=== PATIENT | female | born 1955 | race Caucasian/White ===

== ENCOUNTER → 2017-03-31 | Outpatient (CLI) | payer OTHER | LOC: RAD 03-10 23:20 | DX: N63 Unspecified lump in breast (principal) ==

== ENCOUNTER → 2017-04-08 | Outpatient (CLI) | payer OTHER ==
--- NOTE | ~2017-04-08 | S ---
[facility] [place] [address] SURGICAL PATH RPT PROCEDURE Name: ANGEL KRAMER Room #: REG [facility] MRay.#: [id number] Admission: 04/08/17 Date of : 51 Discharge: Report #: [id number] Path Case #: [id number] PATHOLOGY REPORT COLLECTION DATE: 04/08/2017 RECEIVED DATE: 04/08/2017 SUBMITTING PHYS: Dr. Jhonatan Beckett OTHER PHYS: Dr. Luis Alberto Obrien ADDENDUM REPORT (Order Date: 04/11/2017 13:14) ADDENDUM DIAGNOSIS: A. Breast, left breast, 12:00 SA, needle core biopsy: - INVASIVE MODERATELY DIFFERENTIATED LOBULAR CARCINOMA, EMMA GRADE II MEASURING 1.6 CM IN GREATEST DIMENSION IN A SINGLE CORE IN CONTIGUOUS LENGTH. B. Lymph node, left axillary node, needle core biopsies: - Negative for macrometastases, micrometastases, or isolated tumor cells. ADDENDUM COMMENT: This addendum is issued subsequent to reviewing well controlled immunohistochemical stains. E-cadherin immunohistochemical stain performed on block [id number] within the invasive tumor consistent with invasive lobular carcinoma, reactive within the foci of ductal carcinoma in situ identified, and non-reactive within the foci identified of lobular carcinoma in situ. AE1/AE3 performed on block [id number]; negative for occult micrometastases or isolated tumor cells within this needle core biopsy. The originally rendered diagnosis on Part A and B are further modified as follows: Professional services performed by [facility] at [facility] [address], [place] [address] Technical services performed by [facility] at [address] [place] [address], [address] [place] [address]. ELECTRONICALLY SIGNED BY: Anne Lennon M.D. DATE/TIME:04/11/2017 14:42 SPECIMEN(S) RECEIVED: A.Left breast 12:00 SA B.Left axillary node * * * * * * * * * * * * [facility] [address] [place] [address] SURGICAL PATH RPT PROCEDURE Name: WILLIAMSANGELORIANA BERUMEN [id number] Admission: 04/08/17 Date of : 51 Discharge: Report #: [id number] Path Case #: [id number] FINAL DIAGNOSIS: A. Breast, left breast 12:00 SA, needle core biopsy: - INVASIVE MODERATELY DIFFERENTIATED MAMMARY CARCINOMA WITH PREDOMINANTLY LOBULAR FEATURES, EMMA GRADE II MEASURING 1.6 CM IN GREATEST DIMENSION IN A SINGLE CORE IN CONTIGUOUS LENGTH. B. Lymph node, left axillary node, needle core biopsies: - Negative for macrometastases. COMMENT: Specimen type: Needle core biopsy Tumor site: Left breast 12:00 subareolar Tumor quantitation: 1.6 cm Histologic type: Invasive carcinoma with prominent lobular features, lobular carcinoma in situ, and ductal carcinoma in situ Histologic grade: [place] grade II Tubules, nuclei and mitoses: 3, 2, 1 LVSI: Not identified Microcalcifications: Not identified Markers: ER, VT, Her-2/akshat, Ki-67 Block: A1 Co-review: Dr. Yael Schultz Findings are telephoned to [facility] at approximately 10:00 a.m. on 04/10/17. E-cadherin immunohistochemical stain is performed on block A1 and a cytokeratin (Ae1/Ae3) is performed on block B1 to identify occult micrometastases or isolated tumor cells, the results of these will be reported in a separate addendum to follow. (IUV:mgr; d/t: 04/10/17) PATHOLOGIST: Anne Lennon M.D. REPORT ELECTRONICALLY SIGNED BY: Anne Lennon M.D. DATE/TIME: 04/10/2017 16:46 * * * * * * * * * * * * GROSS PATHOLOGY: A. Received in formalin labeled "Angel Kramer, left breast biopsy 12:00 SA," are multiple needle cores of yellow-frederick fibrofatty tissue measuring 2.8 x 1.2 x 0.3 cm in aggregate dimensions. The tissue is submitted in its entirety in cassette A1. The cold ischemic time is less than 1 minute. The total formalin fixation time is 30 hours and 40 minutes. B. Received in formalin labeled "Angel Kramer, left axillary node biopsy," are multiple segments of friable pale caldwell needle cores measuring 0.6 x 0.5 x 0.1 cm in aggregate dimensions. The specimen is filtered and entirely submitted in cassette B1. The cold ischemic time is less than 1 minute. The total formalin fixation time is [address] [address] SURGICAL PATH RPT PROCEDURE Name: ANGEL KRAMER Room #: REG CLColin Haque#: [id number] Admission: 04/08/17 Date of : 51 Discharge: Report #: [id number] Path Case #: [id number] hours. (CAA; 04/09/2017) CLINICAL HISTORY: Left breast nodule, enlarged lymph node INITIAL CPT CODE(S): A; 35700, 54403, 54943(4) B; 80661, 03532 Professional services performed by [facility] at [address] , [place] [address] Technical services performed by [facility] at [address] [place] [address]. PROCEDURE REPORT (Order Date: 04/10/2017 00:00) INTERPRETATION: Quantitative image analysis was performed on block A1. Please see next page for scanned image of results. COMMENT: PATHOLOGIST: Moises Figueroa M.D. REPORT ELECTRONICALLY SIGNED BY: Moises Figueroa M.D. DATE/TIME: 04/16/2017 11:[address] [facility] [address] [place] [address] PHONE: [phone] DIRECTOR: Alex Aj M.D. * * * END OF REPORT * * *
== END | disposition home or self-care (01) ==
LOC: ULTRA 09:49
DX: C50.912 Malignant neoplasm of unspecified site of left female breast (principal)